=== PATIENT | female | born 1950 | race Caucasian/White ===

== ENCOUNTER 2017-03-15 18:13 | Emergency (ER) | payer MEDICARE ==
[~2017-03-15] VITALS: Ht 154.9 cm; Wt 92.7 kg
[~2017-03-15 18:13] MED LIST: CHOL1TAB42 PO; CLAR10CA3 PO; CYAN1000P IM; IPRA17I INH; LEVO.15 PO; LOSA100T2 PO; MONT10TA4 PO; MULT1TAB84 PO; VENL150T PO; VENTAER INH; ZITHTAB PO; ZOCO20TA PO
[2017-03-15 18:27] VITALS: BP 168/76; PULSE 92; RESP 19; TEMP 98.2; O2SAT 95
--- NOTE | 2017-03-15 19:55 | PD ---
HPI Chief Complaint: ENT Complaint Time Seen by Provider: 19:27 Travel History International Travel<30 days: No Contact w/Intl Traveler<30days: No Traveled to known affect area: No History of Present Illness HPI 66-year-old female presents to the emergency room for evaluation of foreign body sensation to her right eye that started about one hour prior to arrival. Patient was moving plants in her backyard and then rubbed the skin just below her eye at which time she developed immediate burning sensation to the eyeball and to the skin below the eye. She flushed her eye out for 5 minutes and then applied antihistamine drops. Patient states antihistamine drops helped a little bit. She states since being in the emergency room, her symptoms have improved significantly. She has had constant tearing from the right eye. Reports associated photophobia. No drainage. Denies changes in visual acuity. PFSH Past Medical History Cancer: No Cardiovascular Problems: Yes High Cholesterol: Yes Diminished Hearing: No Endocrine: Yes Genitourinary: No Hypertension: Yes Immune Disorder: No Implanted Vascular Access Dvce: No Musculoskeletal: No Neurologic: No Psychiatric: No Reproductive: No Respiratory: Yes Immunizations Current: Yes Sleep Apnea: Yes Thyroid Disease: Yes (Hypo-) Tetanus Vaccination: < 5 Years Influenza Vaccination: Yes ?: Not Menopausal: Yes Past Surgical History Section: Yes (X's 2) Hysterectomy: Yes Joint Replacement: Yes (BL knees ) Other Surgery: No Social History Alcohol Use: Yes (Rarely) Tobacco Use: No Substance Use: No Allergies-Medications (Allergen,Severity, Reaction): Coded Allergies: doxycycline (Unverified Allergy, Intermediate, 03/15/17) minocycline (Unverified Allergy, Intermediate, 03/15/17) tigecycline (Unverified Allergy, Intermediate, 03/15/17) Reported Meds & Prescriptions Reported Meds & Active Scripts Active Reported Vitamin D-3 (Cholecalciferol) 2,000 Unit Tab 1 Tab PO DAILY Cyanocobalamin Inj (Cyanocobalamin) 1,000 Mcg/Ml Inj 1,000 Mcg IM WEEKLY Zocor (Simvastatin) 20 Mg Tab 20 Mg PO DAILY Venlafaxine ER 24 HR (Venlafaxine HCl) 150 Mg Tab 150 Mg PO DAILY Synthroid (Levothyroxine Sodium) 150 Mcg Tab 150 Mcg PO DAILY Montelukast (Montelukast Sodium) 10 Mg Tab 10 Mg PO HS Claritin (Loratadine) 10 Mg Cap 10 Mg PO DAILY Losartan-Hydrochlorothiazide 100-25 Mg Tab 1 Tab PO DAILY Review of Systems Except as stated in HPI: all other systems reviewed are Neg Physical Exam Narrative GENERAL: Well-nourished, well-developed female in no acute distress. Afebrile. Ambulatory. SKIN: Focused skin assessment warm/dry. HEAD: Normocephalic. EYES: PERRL, EOMI without pain. Moderate injection of the right eye. No purulent drainage. Moderate tearing. No scleral icterus. Visual acuity is 20/ 25 in the left and 20/30 in the right. Fluorescein staining reveals no corneal abrasion, ulceration, or foreign body. pH is 8 and equal in both eyes. No obvious foreign body to the preseptal skin. No foreign body with eyelid eversion. NECK: Supple, trachea midline. No JVD or lymphadenopathy. CARDIOVASCULAR: Regular rate and rhythm without murmurs, gallops, or rubs. RESPIRATORY: Breath sounds equal bilaterally. No accessory muscle use. PSYCHIATRIC: No delusional thought processes. No hallucinations. Data Data Last Documented VS Vital Signs Date Time Temp Pulse Resp B/P (MAP) Pulse Ox O2 Delivery O2 Flow Rate FiO2 03/15/17 18:27 98.2 92 19 168/76 (106) 95 MDM Medical Decision Making Medical Screen Exam Complete: Yes Emergency Medical Condition: Yes Medical Record Reviewed: Yes Differential Diagnosis Corneal abrasion, corneal ulceration, conjunctivitis Narrative Course 66-year-old female presents to the emergency room for evaluation of foreign body sensation and burning in the right eye that occurred just prior to arrival. Symptoms started after patient rubbed the skin just below her eye after picking up a plant at home. She tried to take care of at home with antihistamine drops and flushing out her eye but symptoms persisted. Physical exam PERRL, EOMI without pain. Moderate injection of the right eye. No purulent drainage. Moderate tearing. Visual acuity is 20/25 in the left and 20/ 30 in the right. Fluorescein staining reveals no corneal abrasion, ulceration, or foreign body. pH is 8 and equal in both eyes. No obvious foreign body to the preseptal skin. No foreign body with eyelid eversion. Patient likely had skin irritation from a chemical or plant poison on the skin just below her eye. I do not believe the eyeball itself is affected. She'll be discharged with empiric eyedrops and told to take antihistamines and continue using her antihistamine drops. She will follow up and return as needed. She understands and agrees to plan. Diagnosis Primary Impression: Irritation of right eye Referrals: [facility] Additional Instructions: Benadryl as directed on box, as needed for itchiness and irritation of the skin. He can also apply ice to the upper leg symptoms. Continue Benadryl drops as directed on box. Apply drops to right eye as directed. Follow-up with towel folder. Return for worsening symptoms. Med/Other Pt SpecificInfo: Prescription(s) given Disposition: DISCHARGE HOME Condition: Stable Angy Arriola Mar 15, 2017 19:55
[2017-03-15] MEDS ORDERED: POLY3.5O RIGHT EYE (19:57)
== END 2017-03-15 20:05 | disposition home or self-care (01) ==
LOC: PHED 18:13 → PHEFT 20:05
DX: H57.8 Other specified disorders of eye and adnexa (principal); I10 Essential (primary) hypertension; E78.00 Pure hypercholesterolemia, unspecified; E03.9 Hypothyroidism, unspecified; G47.30 Sleep apnea, unspecified
CPT/HCPCS: 99283